=== PATIENT | male | born 1945 | race Caucasian/White ===

== ENCOUNTER → 2017-12-10 | Day surgery (SDC) | payer MEDICARE ==
[2017-12-09 13:04] LABS: BASOPHILS # (AUTO) 0.1 (0.0-0.1); EOSINOPHILS # (AUTO) 0.1 (0.0-0.4); EOSINOPHILS % 1.4 % (0.0-6.0); HEMATOCRIT 58.2 % (38.2-49.6); LYMPHOCYTES % 22.6 % (18.0-39.1); MEAN CORPUSCULAR HGB CONC 32.6 g/dL (31-35); MEAN CORPUSCULAR VOLUME 88.9 fL (81-99); MONOCYTES # (AUTO) 0.8 (0.2-0.8); MONOCYTES % 9.4 % (4.4-11.3); NEUTROPHILS # (AUTO) 5.7 (2.1-6.9); PLATELET COUNT 228 x10e3/uL (140-360); RED BLOOD COUNT 6.55 x10e6/uL (4.3-5.7); RED CELL DISTRIBUTION WIDTH 18.2 % (11.7-14.4)
[~2017-12-10] MED LIST: ANDROGEL75 G1 TOP; ASPIR 8181 MG PO; FENTANYL CITRATE/PF 100MCG/2 ML INJ ONE; GLIMEPIRIDE2 MG PO; HYDROCHLOROTHIA25 MG PO; IRBESARTAN-HCT1 EAC1 PO; JANUVIA100 MG PO; LOVASTATIN20 MG PO; MEN'S MULTI-VI1 EACH PO; METFORMIN HCL500 MG PO; METOPROLOL SUCC25 MG PO; MIDAZOLAM HCL 2 MG/2 ML VIAL ONE; NIACIN500 M2 PO; PROPOFOL IV EMULSION 10 MG/ML 20 ML VIAL ONE; SYNTHROID150 MCG PO
[2017-12-10 09:15] VITALS: BP 114/75
--- NOTE | 2017-12-10 11:04 | Operative Report ---
DATE OF PROCEDURE: December 10, 2017 PROCEDURE PERFORMED: Colonoscopy. PREOPERATIVE DIAGNOSIS: Colon cancer screening. POSTOPERATIVE DIAGNOSES 1. Colon cancer screening. 2. Two colon polyps found. 3. Incomplete examination secondary to excessive amount of stool present in the colon. PREOPERATIVE MEDICATIONS: Consisted with TEVA. Using the [email or web address] video colonoscope, it was inserted into the patient's rectum being encountered with a great deal of stool. The stool persisted as we went up into the sigmoid colon. After washing some of the stool away, we did find 2 colon polyps in the sigmoid colon. As we began to look further, more stool came down from above this area. Because of the excessive amount of stool that was coming down, it was impossible to remove the polyps at this time. We decided to end the procedure and reschedule him at a different time after better clean out. Job#: [id number] CARRIE
== END | disposition home or self-care (01) ==
LOC: OR 06:33
PROVIDERS: ATTEND Internal Medicine Gastroenterology
DX: Z12.11 Encounter for screening for malignant neoplasm of colon (principal); K63.5 Polyp of colon; I10 Essential (primary) hypertension; E11.9 Type 2 diabetes mellitus without complications; Z79.84 Long term (current) use of oral hypoglycemic drugs; E03.9 Hypothyroidism, unspecified; E78.5 Hyperlipidemia, unspecified; G47.33 Obstructive sleep apnea (adult) (pediatric); K21.9 Gastro-esophageal reflux disease without esophagitis; Z79.82 Long term (current) use of aspirin
CPT/HCPCS: 36415 ×2; 82948; 85025; G0121; J2250; J2704; 45378

== ENCOUNTER → 2018-01-07 | Day surgery (SDC) | payer MEDICARE ==
[2018-01-06 11:40] LABS: BASOPHILS # (AUTO) 0.1 (0.0-0.1); BASOPHILS % 0.9 % (0.0-1.0); EOSINOPHILS # (AUTO) 0.1 (0.0-0.4); EOSINOPHILS % 1.7 % (0.0-6.0); HEMATOCRIT 54.1 % (38.2-49.6); HEMOGLOBIN 17.8 g/dL (14.0-18.0); LYMPHOCYTES # (AUTO) 1.7 (1.0-3.2); LYMPHOCYTES % 23.3 % (18.0-39.1); MEAN CORPUSCULAR HEMOGLOBIN 29.3 pg (28-32); MEAN CORPUSCULAR HGB CONC 32.9 g/dL (31-35); MONOCYTES # (AUTO) 0.8 (0.2-0.8); MONOCYTES % 10.9 % (4.4-11.3); NEUTROPHILS # (AUTO) 4.7 (2.1-6.9); NEUTROPHILS % 62.9 % (38.7-80.0); PLATELET COUNT 225 x10e3/uL (140-360); RED BLOOD COUNT 6.08 x10e6/uL (4.3-5.7); RED CELL DISTRIBUTION WIDTH 16.9 % (11.7-14.4)
[2018-01-07 12:15] VITALS: BP 110/71
--- NOTE | 2018-01-07 14:50 | Operative Report ---
DATE OF PROCEDURE: January 07, 2018 PREOPERATIVE DIAGNOSIS: Colon cancer screening. POSTOPERATIVE DIAGNOSES 1. Colon cancer screening. 2. Colon polypectomy. 3. Snare colon polypectomy with hot biopsy forceps. PREOPERATIVE MEDICATIONS: Consisted of general anesthesia. Using the [employer] video colonoscope, it was inserted into the patient's rectum and advanced without difficulty to the level of the cecum. The colon was studied from that level back down to the rectum. In the ascending colon, there was a 4 mm size sessile polyp, which was removed with hot biopsy forceps. Down in the sigmoid colon, there was a 1 cm size adenomatous appearing polyp, which was removed with the electrical snare cautery. Next to it was a 4 mm size benign appearing polyp, which was removed with the hot biopsy forceps. The colonoscope was withdrawn from the patient's rectum, and the procedure was ended. In conclusion, we have 3 polyps as mentioned above, all removed with either the electrical snare cautery or hot biopsy forceps. Job#: [id number] OR
== END | disposition home or self-care (01) ==
LOC: OR 08:35
PROVIDERS: ATTEND Internal Medicine Gastroenterology
DX: Z12.11 Encounter for screening for malignant neoplasm of colon (principal); D12.5 Benign neoplasm of sigmoid colon; K63.5 Polyp of colon; I10 Essential (primary) hypertension; E11.9 Type 2 diabetes mellitus without complications; Z79.84 Long term (current) use of oral hypoglycemic drugs; G47.33 Obstructive sleep apnea (adult) (pediatric); E78.5 Hyperlipidemia, unspecified; Z01.810 Encounter for preprocedural cardiovascular examination; Z01.812 Encounter for preprocedural laboratory examination; Z79.82 Long term (current) use of aspirin
CPT/HCPCS: 36415 ×2; 45384; 45385; 82948; 85025; 88305; 93005; J2250; J2704

== ENCOUNTER → 2018-07-27 | Day surgery (SDC) | payer MEDICARE ==
[~2018-07-27] MED LIST changes: +OR PHACO EYE KIT ONE; +PREOP PHACO EYE KIT ONE; -PROPOFOL IV EMULSION 10 MG/ML 20 ML VIAL ONE
[2018-07-27 15:15] VITALS: BP 119/67
== END | disposition home or self-care (01) ==
LOC: OR 11:06
PROVIDERS: ATTEND Ophthalmology
DX: H25.12 Age-related nuclear cataract, left eye (principal); G47.33 Obstructive sleep apnea (adult) (pediatric); I10 Essential (primary) hypertension; I48.91 Unspecified atrial fibrillation; E03.9 Hypothyroidism, unspecified; E11.9 Type 2 diabetes mellitus without complications; Z91.013 Allergy to seafood; Z79.82 Long term (current) use of aspirin; Z79.84 Long term (current) use of oral hypoglycemic drugs; Z85.850 Personal history of malignant neoplasm of thyroid
CPT/HCPCS: 36415; 66984; 82948; J2250; V2632